=== PATIENT | male | born 1940 | race Caucasian/White ===

== ENCOUNTER 2020-08-28 16:50 | Observation (INO) | payer MEDICARE ==
[~2020-08-28] VITALS: Ht 180.3 cm; Wt 95.2 kg
[~2020-08-28 16:50] MED LIST: ALBU90OI INH; AMLO10 PO; ATEN25 PO; ATOR40TA PO; Aspirin EC81 MG PO; CIPR250 PO; CLOP75 PO; ESOM20 PO; FOLI1 PO; GUAI600T33 PO; LEVFLO500 PO; LOSA50 PO; METO25ER PO; PARI1 PO; PRED20 PO; RXLORA1 PO; SODIUM BICARB PO; TAMS.4ER PO
[2020-08-28 17:51] LABS: BASOPHILS ABSOLUTE AUTO 0.07 K/mm3 (0.00-0.23); BASOPHILS PERCENT AUTO 1 % (0-2); EOSINOPHILS ABSOLUTE AUTO 0.13 K/mm3 (0.00-0.68); EOSINOPHILS PERCENT AUTO 1 % (0-6); Hematocrit 54.3 % (37.0-53.0); Hemoglobin 18.1 g/dL (13.5-17.5); IMMATURE GRAN ABSOLUTE AUTO 0.03 K/mm3 (0.00-0.10); IMMATURE GRAN PERCENT AUTO 0 % (0-1); LYMPHOCYTES PERCENT AUTO 19 % (21-46); MONOCYTES PERCENT AUTO 11 % (4-13); Mean Corpuscular HGB 29.9 pg (26.0-34.0); Mean Corpuscular HGB Conc 33.3 g/dL (31.5-36.5); Mean Corpuscular Volume 90 fL (80-100); Mean Platelet Volume 11.1 fL (9.1-12.4); NEUTROPHILS ABSOLUTE AUTO 6.74 K/mm3 (1.96-9.15); NEUTROPHILS PERCENT AUTO 68 % (41-73); Platelet Count 221 K/mm3 (150-400); RDW Coefficient Variation 14.5 % (11.7-14.2); RDW Standard Deviation 48.1 fL (35.1-46.3); Red Blood Cell Count 6.05 M/mm3 (4.30-5.90); White Blood Cell Count 9.97 K/mm3 (4.00-11.30)
[2020-08-28 18:28] LABS: Albumin, Blood 3.3 g/dL (3.4-5.0); Albumin/Globulin Ratio 0.8 (0.8-1.8); Bilirubin, Total 0.6 mg/dL (0.1-1.0); Bun/Creatinine Ratio 14.9 (12.0-20.0); Calcium, Blood 8.9 mg/dL (8.5-10.1); Creatinine, Blood 1.81 mg/dL (0.60-1.20); Globulin, Blood 3.9 g/dL (2.2-4.0); Total Protein, Blood 7.2 g/dL (6.4-8.2); Troponin I 0.214 ng/mL (0.000-0.040)
[2020-08-28] MEDS ORDERED: METOPROLOL TART50 M3 PO (18:59)
[2020-08-29 02:00] LABS: BASOPHILS ABSOLUTE AUTO 0.08 K/mm3 (0.00-0.23); BASOPHILS PERCENT AUTO 1 % (0-2); EOSINOPHILS ABSOLUTE AUTO 0.16 K/mm3 (0.00-0.68); EOSINOPHILS PERCENT AUTO 2 % (0-6); IMMATURE GRAN ABSOLUTE AUTO 0.03 K/mm3 (0.00-0.10); IMMATURE GRAN PERCENT AUTO 0 % (0-1); LYMPHOCYTES PERCENT AUTO 24 % (21-46); MONOCYTES ABSOLUTE AUTO 0.87 K/mm3 (0.16-1.47); MONOCYTES PERCENT AUTO 10 % (4-13); Mean Corpuscular HGB 30.1 pg (26.0-34.0); Mean Corpuscular HGB Conc 32.7 g/dL (31.5-36.5); Mean Corpuscular Volume 92 fL (80-100); NEUTROPHILS ABSOLUTE AUTO 5.34 K/mm3 (1.96-9.15); NEUTROPHILS PERCENT AUTO 63 % (41-73); Platelet Count 169 K/mm3 (150-400); RDW Coefficient Variation 14.6 % (11.7-14.2); RDW Standard Deviation 49.3 fL (35.1-46.3); Red Blood Cell Count 5.99 M/mm3 (4.30-5.90); White Blood Cell Count 8.48 K/mm3 (4.00-11.30)
[2020-08-29 02:21] LABS: Albumin, Blood 3.1 g/dL (3.4-5.0); Albumin/Globulin Ratio 0.9 (0.8-1.8); Bilirubin, Total 0.6 mg/dL (0.1-1.0); Bun/Creatinine Ratio 15.8 (12.0-20.0); Calcium, Blood 8.7 mg/dL (8.5-10.1); Creatinine, Blood 1.83 mg/dL (0.60-1.20); Globulin, Blood 3.6 g/dL (2.2-4.0); Magnesium, Blood 2.3 mg/dL (1.6-2.4); Potassium, Blood 4.5 mmol/L (3.5-5.5); Total Protein, Blood 6.7 g/dL (6.4-8.2)
--- NOTE | 2020-08-29 06:12 | NUR ---
SHIFT SUMMARY PT RESTED WELL THROUGH THE NIGHT. AFTER ADMIT WAS DONE, PT WAS ABLE TO EAT AND SLEEP. PT ARRIVED FROM ED IN NSR - NO MEDICATION WAS ADMINISTERED TO CONVERT FROM AFIB TO NSR, PT CONVERTED ON OWN. SATS >90% ON ROOM AIR. VOIDS TO URINAL AT BEDSIDE. NO BM. NO PAIN. VSS. CALL LIGHT WITHIN REACH, BED IN LOWEST POSITION. WILL CONTINUE TO MONITOR.
--- NOTE | 2020-08-29 11:12 | NUR ---
Echocardiogram performed.
[2020-08-29] MEDS ORDERED: XARELTO10 M3 PO (11:28)
--- NOTE | 2020-08-29 13:00 | NUR ---
PT DISHCARGE PT PROVIDED WITH DISCHARGE INSTRUCTIONS. MEDICATIONS FAXED TO PT'S PREFERRED PHARMACY. NEW MEDICATIONS EXPLAIEND TO PT. IV REMOVED. TELE REMOVED. 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
== END 2020-08-29 12:50 | disposition home or self-care (01) ==
LOC: ER 16:50 → ERHOLD 16:51 → PCU 16:51
PROVIDERS: Physician Assistant; ADMIT Internal Medicine
DX: I48.91 Unspecified atrial fibrillation (principal); I25.10 Atherosclerotic heart disease of native coronary artery without angina pectoris; J44.9 Chronic obstructive pulmonary disease, unspecified; I12.9 Hypertensive chronic kidney disease with stage 1 through stage 4 chronic kidney disease, or unspecified chronic kidney disease; N18.9 Chronic kidney disease, unspecified; E78.5 Hyperlipidemia, unspecified; N40.0 Benign prostatic hyperplasia without lower urinary tract symptoms; R77.8 Other specified abnormalities of plasma proteins; D75.1 Secondary polycythemia; I08.3 Combined rheumatic disorders of mitral, aortic and tricuspid valves; Z87.891 Personal history of nicotine dependence; Z95.5 Presence of coronary angioplasty implant and graft; Z92.82 Status post administration of tPA (rtPA) in a different facility within the last 24 hours prior to admission to current facility; Z79.02 Long term (current) use of antithrombotics/antiplatelets
CPT/HCPCS: 36415; 71046; 80053; 83735; 83880; 84443; 84484; 85025; 93005; 93010; 93306; 96372; 99285-25; A9270; G0378; J1650

== ENCOUNTER 2024-02-07 12:53 | Inpatient (IN) | payer OTHER ==
[~2024-02-07] VITALS: Ht 180.3 cm; Wt 83.5 kg
[~2024-02-07 12:53] MED LIST changes: +METOPROLOL TART50 M3 PO; +XARELTO10 M3 PO
[2024-02-07 14:10] LABS: Influenza A, PCR NEGATIVE (NEGATIVE); Influenza B, PCR NEGATIVE (NEGATIVE); Resp Syncytial Virus, PCR NEGATIVE (NEGATIVE); SARS-Cov-2 (COVID-19) PCR, MMC NEGATIVE (NEGATIVE)
[2024-02-07 14:33] LABS: Albumin, Blood 2.9 g/dL (3.4-5.0); Albumin/Globulin Ratio 0.7 (0.8-1.8); Bilirubin, Total 0.9 mg/dL (0.1-1.0); Bun/Creatinine Ratio 14.6 (12.0-20.0); Calcium, Blood 8.8 mg/dL (8.5-10.1); Creatinine, Blood 1.99 mg/dL (0.60-1.20); Globulin, Blood 4.3 g/dL (2.2-4.0); Potassium, Blood 4.4 mmol/L (3.5-5.5); Total Protein, Blood 7.2 g/dL (6.4-8.2)
[2024-02-07 14:36] LABS: BASOPHILS ABSOLUTE AUTO 0.04 K/mm3 (0.00-0.23); BASOPHILS PERCENT AUTO 1 % (0-2); EOSINOPHILS ABSOLUTE AUTO 0.08 K/mm3 (0.00-0.68); EOSINOPHILS PERCENT AUTO 1 % (0-6); Hematocrit 47.9 % (37.0-53.0); Hemoglobin 15.8 g/dL (13.5-17.5); IMMATURE GRAN ABSOLUTE AUTO 0.04 K/mm3 (0.00-0.10); IMMATURE GRAN PERCENT AUTO 1 % (0-1); LYMPHOCYTES ABSOLUTE AUTO 1.05 K/mm3 (0.84-5.20); LYMPHOCYTES PERCENT AUTO 12 % (21-46); MONOCYTES ABSOLUTE AUTO 0.95 K/mm3 (0.16-1.47); MONOCYTES PERCENT AUTO 11 % (4-13); Mean Corpuscular Volume 91 fL (80-100); Mean Platelet Volume 10.2 fL (9.1-12.4); NEUTROPHILS ABSOLUTE AUTO 6.35 K/mm3 (1.96-9.15); NEUTROPHILS PERCENT AUTO 75 % (41-73); Platelet Count 245 K/mm3 (150-400); RDW Coefficient Variation 13.6 % (11.7-14.2); RDW Standard Deviation 45.6 fL (35.1-46.3); Red Blood Cell Count 5.27 M/mm3 (4.30-5.90); White Blood Cell Count 8.51 K/mm3 (4.00-11.30)
[2024-02-07] MEDS ORDERED: Azithromycin 250 MG Tab PO ONE (18:15)
[2024-02-07] MEDS ORDERED: MethylPREDNISolone Sod Succ 125 MG Vial IV ONE (18:15)
[2024-02-07] MEDS ORDERED: CefTRIAXone Sodium 2,000 MG in NS 100 ML IV ONE (18:15)
[2024-02-07] MEDS ORDERED: FLU VACC TS2024-25(6MOS UP)/PF 45 MCG/0.5 ML SYRINGE IM SCH (19:35)
[2024-02-07] MEDS ORDERED: Magnesium Hydroxide Conc 10 ML UDC PO PRN (19:35)
[2024-02-07] MEDS ORDERED: Bisacodyl 10 MG Supp PR PRN (19:40)
[2024-02-07] MEDS ORDERED: Ondansetron 4 MG TAB PO PRN (19:40)
[2024-02-07] MEDS ORDERED: Docusate Sodium 100 MG Cap PO SCH (21:00)
[2024-02-07] MEDS ORDERED: Lactobacil 2-S.Thermo-Bifido 1 1 Cap PO SCH (21:00)
[2024-02-07] MEDS ORDERED: Sennosides 8.6 MG Tab PO SCH (21:00)
[2024-02-07] MEDS ORDERED: Famotidine 20 MG Tab PO SCH (21:00)
[2024-02-08] MEDS ORDERED: MethylPREDNISolone Sod Succ 125 MG Vial IV SCH
[2024-02-08 05:36] LABS: BASOPHILS ABSOLUTE AUTO 0.01 K/mm3 (0.00-0.23); BASOPHILS PERCENT AUTO 0 % (0-2); EOSINOPHILS PERCENT AUTO 0 % (0-6); Hematocrit 50.8 % (37.0-53.0); Hemoglobin 16.5 g/dL (13.5-17.5); IMMATURE GRAN ABSOLUTE AUTO 0.04 K/mm3 (0.00-0.10); IMMATURE GRAN PERCENT AUTO 1 % (0-1); LYMPHOCYTES PERCENT AUTO 5 % (21-46); MONOCYTES ABSOLUTE AUTO 0.14 K/mm3 (0.16-1.47); MONOCYTES PERCENT AUTO 2 % (4-13); Mean Corpuscular HGB 29.4 pg (26.0-34.0); Mean Corpuscular HGB Conc 32.5 g/dL (31.5-36.5); Mean Corpuscular Volume 91 fL (80-100); Mean Platelet Volume 10.2 fL (9.1-12.4); NEUTROPHILS ABSOLUTE AUTO 7.71 K/mm3 (1.96-9.15); NEUTROPHILS PERCENT AUTO 93 % (41-73); Platelet Count 257 K/mm3 (150-400); RDW Coefficient Variation 13.3 % (11.7-14.2); Red Blood Cell Count 5.61 M/mm3 (4.30-5.90)
[2024-02-08 05:57] LABS: Bun/Creatinine Ratio 19.2 (12.0-20.0); Calcium, Blood 8.9 mg/dL (8.5-10.1); Creatinine, Blood 1.77 mg/dL (0.60-1.20); Potassium, Blood 4.3 mmol/L (3.5-5.5)
[2024-02-08] MEDS ORDERED: ATORVASTATIN CA20 MG (07:13)
[2024-02-08] MEDS ORDERED: AMLODIPINE BESY10 MG (07:13)
[2024-02-08] MEDS ORDERED: METOPROLOL TART5010 (07:13)
[2024-02-08] MEDS ORDERED: XARELTO15 M1 (07:14)
[2024-02-08] MEDS ORDERED: Albuterol 2.5 MG/3 ML VIAL INH PRN (07:35)
[2024-02-08] MEDS ORDERED: AmLODIPine Besylate 5 MG Tab PO SCH (09:00)
[2024-02-08] MEDS ORDERED: Rivaroxaban 10 MG Tab PO SCH (09:00)
[2024-02-08] MEDS ORDERED: Aspirin 81 MG TabEC PO SCH (09:00)
[2024-02-08] MEDS ORDERED: Atorvastatin 40 MG Tab PO SCH (09:00)
[2024-02-08 15:15] VITALS: BP 134/63
[2024-02-08] MEDS ORDERED: Azithromycin 500 MG in NS 250 ML IV SCH (18:00)
[2024-02-08 18:03] VITALS: BP 134/63
--- NOTE | 2024-02-08 18:53 | NUR ---
Summary. Pt independent in room, occasionally requires help with cords/lines. Using call light appropriately. No acute events. See chart for details.
[2024-02-08] MEDS ORDERED: CefTRIAXone Sodium 1,000 MG in NS 100 ML IV SCH (19:00)
[2024-02-08 19:45] VITALS: BP 132/66
--- NOTE | 2024-02-08 21:49 | NUR ---
Assumed care of pt at 1900. Pt sitting up in bed watching TV. Pt alert and oriented, very hard of hearing. Pt full dinner meal tray provided. PT up to restroom independently w/ steady gait. Vitals updated and stable. IV patent. Pt using call light appropriately, denies current needs. Bed in lowest, locked position.
[2024-02-09 03:51] VITALS: BP 148/73
[2024-02-09 04:03] LABS: Bun/Creatinine Ratio 21.4 (12.0-20.0); Calcium, Blood 9.1 mg/dL (8.5-10.1); Creatinine, Blood 2.06 mg/dL (0.60-1.20); Potassium, Blood 4.6 mmol/L (3.5-5.5)
[2024-02-09 08:20] VITALS: BP 119/59
[2024-02-09] MEDS ORDERED: AMLO5 PO (12:13)
[2024-02-09] MEDS ORDERED: IPRAT-ALBUT 0.5-3 ML INH (12:18)
[2024-02-09] MEDS ORDERED: LEVOFLOXACIN750 MG PO (12:18)
[2024-02-09] MEDS ORDERED: TIOT18 INH (12:19)
[2024-02-09] MEDS ORDERED: PRED20 PO (12:19)
--- NOTE | 2024-02-09 14:50 | NUR ---
DISCHARGE: PT HAS BEEN CLEARED FOR DISCHARGE HOME. HOME O2 EVAL COMPLETED THIS MORNING, O2 DELIVERED TO BEDSIDE WITH INSTRUCTION BY [facility] STAFF. PT DRESSES SELF. ALL IV ACCESS HAS BEEN DC'd WNL. PT's SPOUSE TO BEDSIDE. DC PAPERWORK AND INSTRUCTIONS PROVIDED, ALL QUESTIONS HAVE BEEN ANSWERED. [facility] NOTIFIED OF PT's DEPARTURE. PT ESCORTED FROM UNIT VIA W/C WITHOUT INCIDENT.
== END 2024-02-09 15:26 | disposition home or self-care (01) | DRG 193 ==
LOC: ER 12:53 → ERHOLD 12:54 → ER 19:32 → ERHOLD 19:32 → ICUE 02-08 14:56
PROVIDERS: Emergency Medicine; Internal Medicine; ADMIT Hospitalist
DX: J18.9 Pneumonia, unspecified organism (principal); J96.01 Acute respiratory failure with hypoxia; J96.02 Acute respiratory failure with hypercapnia; J44.0 Chronic obstructive pulmonary disease with (acute) lower respiratory infection; J44.1 Chronic obstructive pulmonary disease with (acute) exacerbation; F17.210 Nicotine dependence, cigarettes, uncomplicated; Z66 Do not resuscitate; I25.10 Atherosclerotic heart disease of native coronary artery without angina pectoris; Z95.5 Presence of coronary angioplasty implant and graft; J44.9 Chronic obstructive pulmonary disease, unspecified; I12.9 Hypertensive chronic kidney disease with stage 1 through stage 4 chronic kidney disease, or unspecified chronic kidney disease; N18.32 Chronic kidney disease, stage 3b; E78.5 Hyperlipidemia, unspecified; N40.0 Benign prostatic hyperplasia without lower urinary tract symptoms; Z71.6 Tobacco abuse counseling; I48.91 Unspecified atrial fibrillation; D75.1 Secondary polycythemia; Z90.49 Acquired absence of other specified parts of digestive tract; Z79.82 Long term (current) use of aspirin; Z79.899 Other long term (current) drug therapy; Z79.02 Long term (current) use of antithrombotics/antiplatelets
CPT/HCPCS: 0241U; 36415; 71046; 80048; 80053; 84484; 85025; 93005; 93010; 94640; 94760; 94761; 96365; 96367; 96375; 96376; 99285-25; A9270; G0378; J0456; J0696; J2919; J7050